=== PATIENT | male | born 1995 | race Caucasian/White ===

== ENCOUNTER → 2023-11-16 | Outpatient (CLI) | payer BC ==
[~2023-11-16] MED LIST: AUGMENTIN 875875 MG PO; CORTISPORIN SUS10 ML OT; DARVOCET N 1001 TAB PO; FIORICET 50-301 EACH PO; MOTRIN800 MG PO; NEXIUM40 MG PO; RANITIDINE 7575 MG PO; REGLAN PO; ZOFRAN ODT8 MG PO
== END | disposition home or self-care (01) ==
LOC: RAD 09:29
PROVIDERS: ATTEND Physician Assistant
DX: M19.072 Primary osteoarthritis, left ankle and foot (principal); M79.671 Pain in right foot; M79.672 Pain in left foot; M25.511 Pain in right shoulder; R20.0 Anesthesia of skin

== ENCOUNTER → 2023-12-02 | Outpatient (CLI) | payer BC | END | disposition home or self-care (01) | LOC: RAD 16:51 | PROVIDERS: ATTEND Chiropractor | DX: M54.2 Cervicalgia (principal) ==